=== PATIENT | male | born 1995 | race Caucasian/White ===

== ENCOUNTER 2016-08-31 22:34 | Outpatient (CLI) ==
[2014-04-02 11:24] VITALS: BMI 18.7
== END 2016-08-31 22:35 | disposition home or self-care (01) ==
LOC: AMBL 22:34
PROVIDERS: ATTEND Internal Medicine Geriatric Medicine
DX: S50.812A Abrasion of left forearm, initial encounter (principal); S50.811A Abrasion of right forearm, initial encounter; V49.9XXA Car occupant (driver) (passenger) injured in unspecified traffic accident, initial encounter